=== PATIENT | female | born 1990 | race Caucasian/White ===

== ENCOUNTER 2018-02-06 00:55 | Emergency (ER) | payer BC, SELFPAY ==
[2018-02-06 00:56] VITALS: BP 159/109; PULSE 75; RESP 24; TEMP 36.9; O2SAT 97; BMI 33.3
[2018-02-06] MEDS: morphine 8 MG/ML Syringe IV (01:08)
[2018-02-06] MEDS: Ondansetron 4 MG/2 ML Vial IV (01:09)
[2018-02-06] MEDS: 0.9% Normal Saline 1,000 ML 250 ML IV (01:09)
[2018-02-06 01:18] LABS: Absolute Lymphocyte Count 2.06 X10^3/ul (0.83-4.51); Absolute Neutrophil Count 6.8 X10^3/uL (2.0-7.7); Basophil# 0.02 X10^3/uL; Basophil% 0.2 % (0-1); Eosinophil# 0.26 X10^3/uL; Eosinophils% 2.7 % (0-5); Hematocrit 41.7 % (37-47); Hemoglobin 14.5 g/dl (12.0-15.0); Lymphocyte # 2.06 X10^3/ul (4.0); Lymphocyte % 21.1 % (19-41); Mean Corp Hgb Conc 34.8 g/gl (32-36); Mean Corpuscular Hgb 31.5 pg (27.0-32.0); Mean Corpuscular Volume 90.5 fL (81-99); Monocyte# 0.57 X10^3/uL; Monocyte% 5.8 % (0-10); Neutrophil # 6.84 X10^3/uL (2.7-7.7); Platelet Count 193 K/mm3 (150-450); RBC Distribution Width CV 12.9 % (11.6-14.6); RBC Distribution Width SD 42.2 fl (35.1-43.9); Red Blood Count 4.61 M/mm3 (4.2-5.4); White Blood Count 9.8 K/mm3 (4.4-11.0)
[2018-02-06 01:19] LABS: POSITIVE COUNT NO; POSITIVE DIFFERENTIAL NO; POSITIVE MORPHOLOGY NO
--- NOTE | 2018-02-06 01:59 | ED.RN ---
DR SARAH GREEN FOR DR BOLTON
[2018-02-06] MEDS: Ketorolac 15 MG/ML Vial IV (02:08)
[2018-02-06] MEDS: HYDROmorphone 0.5 MG/0.5 ML SYRINGE IV ×2 (02:08→03:43)
--- NOTE | 2018-02-06 02:49 | ED.VISSUMM ---
- ER Visit Summary Date of Service: 02/06/18 Chief Complaint: Severe cramping pelvic pain with vaginal bleeding History of Present Illness: The patient is a 27 F who is AB 0 with a positive blood presents with cramping pelvic pain every 5 minutes. She began to bleed 2 hours prior to presentation and states she has saturated 3 pads. She did not notice any tissue and she denies any clots. She had an ultrasound which revealed gestational development at 7 weeks and by dates she should be 13 weeks. states she was given methotrexate to expelled the contents. She has a positive blood. She denies fever, chills night sweats. She denies cardiorespiratory symptoms. She denies nausea, vomiting or diarrhea. Physical Examination: Vital signs noted and remarkable for an elevated blood pressure 159/109. She appears in discomfort. She is slightly pale in appearance. Head is atraumatic normocephalic. Pupils are equal round reactive. Extraocular muscles are intact. TMs are pearly white with landmarks noted. Nares patent with no drainage. Posterior pharynx without erythema or exudate. Uvula is midline. There is no dysphonia or dysphasia. Trachea is midline. There is no stridor with auscultation of the neck. Heart is regular without murmur, gallop or rub. S1 and S2 are normal. Lungs are clear to auscultation with good movement of air bilaterally. Abdomen is soft minimal suprapubic discomfort. External genitalia normal. Vaginal mucosa normal. External loss appears dilated. There is blood being expelled from the uterus. Attempt to tell other contents was unsuccessful. Uterus is enlarged and approximately 6 weeks. She has uterine tenderness. No adnexal mass or tenderness appreciated. Test Results: CBC is unremarkable. Emergency Department Course and Treatment: IV was established she was treated with 8 mg of morphine and 4 mg of Zofran IV push. She was still having significant discomfort. She received 0.5 mg of Dilaudid IV push and 50 mg of Toradol IV push. Call was placed by admin secretary and attempt to contact Dr. Carrie Montelongo was unsuccessful. Will attempt again at 0300. Spoke with Dr. Carrie Montelongo's occasional caregiver. She recommended speaking with Dr. Estrada who is lead radiation therapist if patient continued to have pain. I was informed while I was talking with the occasional caregiver that patient expelled the products of conception. She was made aware of this. Her pain is resolved. Treatment Plan: Protocol for passage of products of conception. Disposition: Discharge to home Impression: Complete AB after administration of Cytotec This note was generated with [employer] dictation software. It may contain incorrect words, spelling, and punctuation that were not noted in review of the chart prior to signing ED Disposition - Plan for ED Patient: Disposition: Home or Assisted Living Chief Complaint: Vag Bld, Preg Instructions: ED Miscarriage Completed Referrals: Lonnie Rothman MD [Primary Care Provider] - Carrie Montelongo MD [STAFF PHYSICIAN] - Additional Instructions: Contact Dr. Carrie Montelongo's office on Thursday.
--- NOTE | 2018-02-06 02:52 | ED.DCSUM_ITS ---
- ER Visit Summary Date of Service: 02/06/18 Chief Complaint: Severe cramping pelvic pain with vaginal bleeding History of Present Illness: The patient is a 27 F who is AB 0 with a positive blood presents with cramping pelvic pain every 5 minutes. She began to bleed 2 hours prior to presentation and states she has saturated 3 pads. She did not notice any tissue and she denies any clots. She had an ultrasound which revealed gestational development at 7 weeks and by dates she should be 13 weeks. states she was given methotrexate to expelled the contents. She has a positive blood. She denies fever, chills night sweats. She denies cardiorespiratory symptoms. She denies nausea, vomiting or diarrhea. Physical Examination: Vital signs noted and remarkable for an elevated blood pressure 159/109. She appears in discomfort. She is slightly pale in appearance. Head is atraumatic normocephalic. Pupils are equal round reactive. Extraocular muscles are intact. TMs are pearly white with landmarks noted. Nares patent with no drainage. Posterior pharynx without erythema or exudate. Uvula is midline. There is no dysphonia or dysphasia. Trachea is midline. There is no stridor with auscultation of the neck. Heart is regular without murmur, gallop or rub. S1 and S2 are normal. Lungs are clear to auscultation with good movement of air bilaterally. Abdomen is soft minimal suprapubic discomfort. External genitalia normal. Vaginal mucosa normal. External loss appears dilated. There is blood being expelled from the uterus. Attempt to tell other contents was unsuccessful. Uterus is enlarged and approximately 6 weeks. She has uterine tenderness. No adnexal mass or tenderness appreciated. Test Results: CBC is unremarkable. Emergency Department Course and Treatment: IV was established she was treated with 8 mg of morphine and 4 mg of Zofran IV push. She was still having significant discomfort. She received 0.5 mg of Dilaudid IV push and 50 mg of Toradol IV push. Call was placed by clerical secretary and attempt to contact Dr. Carrie Montelongo was unsuccessful. Will attempt again at 0300. Spoke with Dr. Carrie Montelongo's customer service analyst. She recommended speaking with Dr. Estrada who is communication coordinator if patient continued to have pain. I was informed while I was talking with the customer service analyst that patient expelled the products of conception. She was made aware of this. Her pain is resolved. Treatment Plan: Protocol for passage of products of conception. Disposition: Discharge to home Impression: Complete AB after administration of Cytotec This note was generated with [employer] dictation software. It may contain incorrect words, spelling, and punctuation that were not noted in review of the chart prior to signing ED Disposition - Plan for ED Patient: Disposition: Home or Assisted Living Chief Complaint: Vag Bld, Preg Instructions: ED Miscarriage Completed Referrals: Lonnie Rothman MD [Primary Care Provider] - Carrie Montelongo MD [STAFF PHYSICIAN] - Additional Instructions: Contact Dr. Carrie Montelongo's office on Thursday.
--- NOTE | 2018-02-06 03:36 | ED.RN ---
DR RICARDO X3 AND DR RODRIGUEZ X1 PAGED
[2018-02-06 03:44] VITALS: BP 132/74; PULSE 91; RESP 22; O2SAT 98
--- NOTE | 2018-02-06 04:12 | ED.RN ---
LEFT MESSAGE ON VOICEMAIL FOR DR LOGAN WHO PER CATHERINE MIRANDA COVERS FOR DR SMITH
--- NOTE | 2018-02-06 04:12 | ED.RN ---
CONTACTED ANSWERING SERVICE FOR DR SMITH
--- NOTE | 2018-02-06 04:45 | ED.RN ---
PT CALLED STAFF INTO THE ROOM. PT IN THE BATHROOM. DROPS OF BLOOD ON THE FLOOR. THIS NURSE AND KARIS RN IN THE ROOM WITH THE PT. PT GIVEN BATH PACK TO CLEAN UP. WHEN THIS NURSE STARTED CLEANING THE BED, TISSUE AND BLOOD FOUND ON THE BED. PLACED IN A SPECIMEN CUP AND SHOWN TO DR BOLTON. DR BOLTON AND THIS NURSE IN THE ROOM TO INFORM THE PT AND HER SHE PASSED THE PRODUCTS OF CONCEPTION.
--- NOTE | 2018-02-06 06:15 | POC_PTH ---
PATIENT: KATHY SOLER LOC: ED U#:[id number] AGE/SX: 27/F ROOM: RE02/06/[address]: Dr. Chacorta Whiting MD : 1990 BED: DIS: 02/06/2018 SPEC #: [id number] RECD: 02/08/18 13:12 STATUS: LELA REPatt #: [id number] MARLEN: 02/06/18 06:[address]: Chacorta Whiting DEPT: SURGICAL PATHOLOGY RECD BY: Terrence Payton ENTERED: 02/08/18 13:12 SP TYPE: PROD CONC OTHR DR: Dr. Lonnie Rothman MD Tissues: Product of conception, NOS Procedures: Surgery Specimen Level IV HEADER OPERATION: Not noted PRE-OP DIAGNOSIS: Miscarriage TISSUE SUBMITTED: Products of conception MICROSCOPIC DIAGNOSIS Products of conception: Decidua and immature chorionic villi (products of conception). SJ:oscar 02/10/18 MICROSCOPIC DESCRIPTION Slides are reviewed. GROSS DESCRIPTION Received is one container labeled with the patient's name and not further designated. The specimen consists of a piece of hemorrhagic soft tissue measuring 6.5 x 2.5 x 2.5 cm. Sections reveal hemorrhagic cut surfaces. No obvious tissue is identified. Chemical Engineer sections are submitted in two cassettes. / SJ:oscar 02/08/18 TC:5 CPT: 62667
[2018-02-06 06:24] VITALS: BP 118/62; PULSE 74; RESP 16; O2SAT 98
--- NOTE | 2018-02-06 06:24 | ED.RN ---
THIS NURSE REVIEWED D/C INSTRUCTIONS WITH PT AND . PT VERBALIZED UNDERSTANDING OF INSTRUCTIONS. IV D/C. IV CATHETER INTACT. PT TOLERATED WELL. PT DENIES FURTHER NEEDS OR QUESTIONS AT THIS TIME. PT AMBULATES FROM ROOM ON OWN WITHOUT ASSISTANCE FROM STAFF
[2018-02-06 06:28] LABS: Pathology Specimen OB SEE PATHOLOGY REPORT
== END 2018-02-06 06:28 | disposition home or self-care (01) ==
PROVIDERS: Emergency Provider Emergency Medicine; Family Provider Family Medicine; PCP Family Medicine
DX: R03.0 Elevated blood-pressure reading, without diagnosis of hypertension (principal); O03.9 Complete or unspecified spontaneous abortion without complication; E66.9 Obesity, unspecified; O99.211 Obesity complicating pregnancy, first trimester; Z3A.01 Less than 8 weeks gestation of pregnancy
CPT/HCPCS: 85025; 88305; 96361; 96374; 96375; 96376; 99284; J7030; A4216; J2405

== ENCOUNTER → 2018-05-24 15:26 | Outpatient (CLI) | payer BC, SELFPAY ==
[2018-05-24 18:20] LABS: hCG Titer Quant., Serum 15751 mIU/mL (<9 non-preg)
[2018-05-24 20:08] LABS: Chlamydia Trachomatis by PCR Negative (Negative); Neisserai gonorrhoeae by PCR Negative (Negative); Probe Check PASS; Sample Adequacy Control PASS; Specimen Processing Control PASS
== END ==
PROVIDERS: Visit Provider Obstetrics & Gynecology
DX: O20.0 Threatened abortion (principal); Z11.3 Encounter for screening for infections with a predominantly sexual mode of transmission
CPT/HCPCS: 36415; 84702; 87491; 87591

== ENCOUNTER → 2018-05-26 15:05 | Outpatient (CLI) | payer BC, SELFPAY ==
[2018-05-26 16:58] LABS: hCG Titer Quant., Serum 19342 mIU/mL (<9 non-preg)
== END ==
PROVIDERS: Visit Provider Obstetrics & Gynecology
DX: O20.0 Threatened abortion (principal)
CPT/HCPCS: 36415; 84702

== ENCOUNTER 2018-06-04 11:53 | Day surgery (SDC) | payer BC, SELFPAY ==
--- NOTE | 2018-06-03 09:41 | HP.PCM_ITS ---
History and Physical Date of Admission: 06/04/18 Surgical History and Physical Tejal Galindo, a 27 year old female 0 0 1 0 0, presents for Blighted Ovum on June 04, 2018 at 1:30. -- Blighted Ovum -- Periodic spotting. Severity is moderate and very concerned; Additional comments are: u/s shows blighted ovum; quant HCGs did not rise appropriately last week. MEDICATIONS HISTORY: Patient is also takin. ProAir HFA 90 mcg/actuation aerosol inhaler, As Directed ALLERGIES: No Known Allergies Infections - Chicken pox Illnesses - asthma, Spondolysiis and Accidents - None Hospitalizations - see surgery Review of Systems: GENERAL - Denies fever, or chills SKIN - Denies skin changes EYES - Denies visual changes EARS - Denies difficulty hearing NOSE - Denies nasal congestion or bleeding MOUTH - Denies sore throat or difficulty swallowing NECK - Denies pain or swelling RESPIRATORY - Denies shortness of breath or wheezing CARDIOVASCULAR - Denies palpitations or chest pain GASTROINTESTINAL - nausea GENITOURINARY - Denies dysuria, frequency of urination, incontinence of urine MUSCULOSKELETAL - Denies joint or muscle pain NEUROLOGICAL - Denies localized numbness or weakness PSYCHIATRIC - Denies depression or anxiety ENDOCRINE - Denies heat or cold intolerance, weight loss or gain HEMATO-IMMUNOLOGIC - Denies excesive bleeding with cuts SOCIAL HISTORY: Alcohol Use - RARELY Smoking - Never Diet - no special diet Lifestyle - moderate stress lifestyle and Exercise - active work Seat Belt Use - always 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 2007 [place] Teeth Removal PHYSICAL EXAM BP- 122/80 Sitting, Right arm, regular cuff Weight- 206.05204 lbs Height- 65.5 inch BMI:33.83 CONSTITUTIONAL - NAD, well nourished, and well developed SKIN - No rash, lesions, or ulcers HEENT - Normocephalic, PERRLA, EOMI NECK - No nodes, no nuchal rigidity and thyroid normal size and texture LYMPH NODES - Palpation of lymph nodes in neck and groins within normal limits LUNGS - CTA x2 without wheezes, crackles or rales CARDIAC - Regular rate and rhythm without rubs, murmurs, or gallops ABDOMEN - Without hepatosplenomegaly, distention, masses, rebound, or guarding; normal bowel sounds; no hernias EXTREMITIES - No edema or calf tenderness NEUROLOGICAL - Cranial nerves II-XII grossly intact PSYCHIATRIC - A and O to time, place, person, mood and affect External Genitial Vagina - non-tender without lesions Urethra/Urethral Meatus - non-tender Bladder - non-tender Vagina - vaginal kahn are pink and moist without loss of rugae and no evidence of atropy Cervix - without cervical motion tenderness and has normal size and features without evident lesions Uterus - multiparous size 6 cm & wt 75-125 g Adnexa - clear without masses or tenderness ASSESSMENT/PLAN: 1. Spontaneous , Incomplete, Without Mention Of Complication Blighted Ovum. Discussed treatment options including expectant management vs proceeding with suction D and E. Plan D and E. Discussed RBAs and all questions answered.
[2018-06-04] VITALS (8 sets, daily range): BP systolic 116–126; BP diastolic 7–73; PULSE 68–108; RESP 14–108; TEMP 37.1–37.6; O2SAT 92–98; BMI 33.2
[2018-06-04 12:26] LABS: Hematocrit 43.7 % (37-47); Hemoglobin 14.9 g/dl (12.0-15.0); Mean Corp Hgb Conc 34.1 g/gl (32-36); Mean Corpuscular Volume 88.1 fL (81-99); Mean Platelet Vol. 9.4 fl (6.2-12.0); Platelet Count 192 K/mm3 (150-450); RBC Distribution Width CV 13.1 % (11.6-14.6); RBC Distribution Width SD 42.3 fl (35.1-43.9); Red Blood Count 4.96 M/mm3 (4.2-5.4); White Blood Count 5.5 K/mm3 (4.4-11.0)
[2018-06-04 12:30] LABS: International Normalized Ratio 1.1; Prothrombin Time (Protime)PT. 13.6 SECONDS (11.7-14.9)
[2018-06-04 12:31] LABS: Partial Thromboplast Time 28.1 Seconds (24.1-36.2)
[2018-06-04 12:33] LABS: Scan Indicated on CBC? Y/N NO
--- NOTE | 2018-06-04 13:30 | POC_PTH ---
PATIENT: KATHY SOLER LOC: [facility] [place] U[place][id number] AGE/SX: 27/F ROOM: RE06/04/[address]: Dr. Anastacio Lopez MD : 1990 BED: DIS: 06/04/2018 SPEC #: [id number] RECD: 06/04/18 16:37 STATUS: LELA REYNA #: [id number] MARLEN: 06/04/18 13:[address]: Anastacio Lopez DEPT: SURGICAL PATHOLOGY RECD BY: Jeronimo Velasco ENTERED: 06/07/18 10:21 SP TYPE: PROD CONC OTHR DR: Dr. Lonnie Rothman MD Tissues: Product of conception, NOS Procedures: Surgery Specimen Level IV HEADER OPERATION: Dilation and curettage, suction PRE-OP DIAGNOSIS: Spontaneous incomplete without mention of complication blighted ovum TISSUE SUBMITTED: Products of conception MICROSCOPIC DIAGNOSIS Products of conception: Decidua, gestational endometrium and immature chorionic villi (products of conception). SJ:oscar 06/08/18 MICROSCOPIC DESCRIPTION Slides are reviewed. GROSS DESCRIPTION Received in fixative is one container labeled with the patient's name and designated products of conception. The specimen consists of multiple irregular fragments of light to dark franco soft tissue that in aggregate measure 7 x 3 x 0.6 cm. parts are not grossly recognized. Hydrogen Power Plant Manager portions are submitted in one cassette. / AM:oscar 06/07/18 TC:5 CPT: 39235
--- NOTE | 2018-06-04 13:49 | PCM.OPRPT ---
Report of Operation Date of Procedure: 06/04/18 Pre-Operative Diagnosis: Inevitable Miscarriage Post-Operative Diagnosis: Inevitable Miscarriage Surgery/Procedure Performed:: Suction Dilation and Evacuation Description of Surgical Findings:: 8-9 cm endometrial cavity with products of conception Type of Anesthesia:: MAC Anesthesiologist: Gilson Laurent Specimen's removed: Products of conception Drains: None Estimated Blood Loss (mL): Minimal Fluids Replaced: Crystalloid Description of Procedure: Surgeon: Anastacio Lopez MD, FACOG Indication: 27 Year patient with incomplete AB at about 9 weeks gestation with a blighted ovum. Pt has been counseled re RBAs and all questions answered. Procedure: Pt taken to the OR where she was given IV sedation. The patient was prepped and draped in the usual sterile fashion. Anterior cervix grasped and cervix dilated to 9 mm. An 8 mm suction curette was inserted into the cervix and all contents removed. Uterus was gently curetted and remaining tissue removed. Pt tolerated the procedure well and was taken to the recovery room in satisfactory condition. Sponge, instruments and needle counts were all correct. There were no apparent complications of the surgery. Grafts/Implants Used: None - Complications None - Admit VTE Documentation VTE Present on Admission: Yes VTE Mechan Device Prophylaxis: SCD's
--- NOTE | 2018-06-04 13:53 | DCINST_ITS ---
Discharge Diet: No Restrictions Discharge Activity: Return to Normal Activity, May Shower, May Take a Tub Bath Call your doctor if you observe: Fever of 101 or Higher, Inability to urinate, Inability to have a bowel movement, Using more than one pad per hour Allergies/Adverse Reactions: Allergies amoxicillin [From Augmentin] Allergy (Verified 06/02/18 09:10) Unknown clavulanic acid [From Augmentin] Allergy (Verified 06/03/18 16:19) Unknown Pt had reaction when they were a child. Since they have taken Amoxicillin and have been fine, but have not taken Augmentin. Medications to take at Discharge Albuterol IH (ProAir) [Proair Hfa] 2 puff IH Q6H PRN PRN 02/06/18 Loratadine [Claritin] 10 mg PO DAILY 06/02/18 Primary Care Physician: Lonnie Rothman MD [Primary Care Provider] - Test Results: Test results from this visit will be discussed in further detail at your follow- up appointment, if applicable. Please Follow Up With: Anastacio Lopez MD When: 2-3 weeks
[2018-06-04] MEDS: Lubricating Jelly 60 GM Tube 30 GM TOPICAL (13:54)
== END 2018-06-04 15:30 | disposition home or self-care (01) ==
LOC: SDC 11:56 → ACINP 12:00
PROVIDERS: Family Provider Family Medicine; PCP Family Medicine; Referring Provider Obstetrics & Gynecology; Visit Provider Obstetrics & Gynecology
PROC: (CPT 59812; principal; 2018-06-04 13:15)
DX: O02.0 Blighted ovum and nonhydatidiform mole (principal); O03.4 Incomplete spontaneous abortion without complication; J45.909 Unspecified asthma, uncomplicated; Z3A.09 9 weeks gestation of pregnancy; Z79.899 Other long term (current) drug therapy
CPT/HCPCS: 59812; 85027; 85610; 85730; 86850; 86900; 88305; J7120

== ENCOUNTER → 2018-11-17 17:47 | Outpatient (CLI) | payer BC, SELFPAY ==
[2018-06-04 12:28] VITALS: BMI 33.2
[2018-11-17 20:35] LABS: Chlamydia Trachomatis by PCR Negative (Negative); Neisserai gonorrhoeae by PCR Negative (Negative); Probe Check PASS; Sample Adequacy Control PASS; Specimen Processing Control PASS
[2018-11-23 09:33] LABS: HPV Reflexed? NOT INDICATED
== END ==
PROVIDERS: Family Provider Family Medicine; PCP Family Medicine; Referring Provider Obstetrics & Gynecology; Visit Provider Obstetrics & Gynecology
DX: Z12.4 Encounter for screening for malignant neoplasm of cervix (principal); Z11.3 Encounter for screening for infections with a predominantly sexual mode of transmission
CPT/HCPCS: 87491; 87591; 88175; G0145

== ENCOUNTER → 2018-12-01 16:25 | Outpatient (CLI) | payer BC, SELFPAY ==
[2018-06-04 12:28] VITALS: BMI 33.2
[2018-12-01 17:50] LABS: Absolute Lymphocyte Count 1.59 X10^3/uL (0.83-4.51); Absolute Neutrophil Count 4.4 X10^3/uL (2.0-7.7); Basophil# 0.02 X10^3/uL; Basophil% 0.3 % (0-1); Eosinophil# 0.24 X10^3/uL; Eosinophils% 3.6 % (0-5); Hematocrit 44.6 % (37-47); Hemoglobin 14.8 g/dL (12.0-15.0); Lymphocyte # 1.59 X10^3/ul (4.0); Lymphocyte % 23.6 % (19-41); Mean Corp Hgb Conc 33.2 g/dL (32-36); Mean Corpuscular Hgb 30.1 pg (27.0-32.0); Mean Corpuscular Volume 90.7 fL (81-99); Mean Platelet Vol. 10.2 fl (6.2-12.0); Monocyte# 0.48 X10^3/uL; Monocyte% 7.1 % (0-10); NRBC Flagged by Analyzer 0 % (0-5); Neutrophil % 65.3 % (47-70); Platelet Count 211 K/mm3 (150-450); RBC Distribution Width CV 12.7 % (11.6-14.6); RBC Distribution Width SD 41.9 fl (35.1-43.9); Red Blood Count 4.92 M/mm3 (4.2-5.4); White Blood Count 6.7 K/mm3 (4.4-11.0)
[2018-12-01 17:51] LABS: Color, Urine Yellow (Yellow); Glucose, Dipstick Normal (Normal); Ketone-Dipstick Negative (Negative); Leukocyte Esterase-Dipstick Negative /ul (Negative); Nitrite-Dipstick Negative (Negative); Occult Blood-Urine Negative /ul (Negative); Protein-Dipstick Negative (Negative); Specific Gravity, Urine 1.025 (1.002-1.030); Urine Bilirubin Dipstick Negative (Negative); Urine Clarity Clear (Clear); Urine Urobilinogen Normal (Normal)
[2018-12-01 18:15] LABS: Amphetamine Urine VISTA NEGATIVE (<1000 ng/mL); Barbiturate Urine VISTA NEGATIVE (< 200 ng/mL); Benzodiazepine Urine VISTA NEGATIVE (< 200 ng/mL); Cocaine Urine VISTA NEGATIVE (< 300 ng/mL); Ecstacy Urine VISTA NEGATIVE (< 500 ng/mL); Methadone Urine VISTA NEGATIVE (< 300 ng/mL); PCP Urine VISTA NEGATIVE (< 25 ng/mL); THC Urine VISTA NEGATIVE (< 50 ng/mL); Vista UDS pH Range 5
[2018-12-01 18:17] LABS: Thyroid Stim Hormone (TSH) 1.41 uIU/mL (0.358-3.74)
[2018-12-02 02:58] LABS: Prenatal RPR NONREACTIVE (NONREACTIVE)
[2018-12-02 11:27] LABS: HIV - WCH Non-Reactive (Nonreactive); Hepatitis B Surface Antigen Non-Reactive (Nonreactive); Hepatitis C Antibody Non-Reactive (Nonreactive); Rubella IgG 195.2 IU/mL
== END ==
PROVIDERS: Visit Provider Obstetrics & Gynecology
DX: Z34.81 Encounter for supervision of other normal pregnancy, first trimester (principal)
CPT/HCPCS: 36415; 80307; 81002; 84443; 85025; 86703; 86762; 86803; 87340

== ENCOUNTER 2019-01-05 05:56 | Day surgery (SDC) | payer BC, SELFPAY ==
[2018-06-04 12:28] VITALS: BMI 33.2
--- NOTE | 2019-01-04 14:04 | HP.PCM_ITS ---
History and Physical Date of Admission: 01/05/19 Surgical History and Physical Tejal Galindo, a 28 year old female 0 0 2 0 0, presents for Inevitable Miscarriage on January 05, 2019 at 7:30. -- Inevitable Miscarriage -- Irregular GS seen on u/s. No FHR or color doppler seen. Fetus measures 8 weeks 2 days without FHTs at 12 weeks 0 days gestation. MEDICATIONS HISTORY: Patient is also takin. ProAir HFA 90 mcg/actuation aerosol inhaler, As Directed ALLERGIES: No Known Allergies Infections - Chicken pox Illnesses - asthma, Spondolysiis and Accidents - None Hospitalizations - see surgery Review of Systems: GENERAL - Denies fever, or chills SKIN - Denies skin changes EYES - Denies visual changes EARS - Denies difficulty hearing NOSE - Denies nasal congestion or bleeding MOUTH - Denies sore throat or difficulty swallowing NECK - Denies pain or swelling RESPIRATORY - reactive airway CARDIOVASCULAR - Denies palpitations or chest pain GASTROINTESTINAL - Denies nausea, vomiting, diarrhea, constipation GENITOURINARY - Denies dysuria, frequency of urination, incontinence of urine MUSCULOSKELETAL - spondelothesis NEUROLOGICAL - Denies localized numbness or weakness PSYCHIATRIC - Denies depression or anxiety ENDOCRINE - Denies heat or cold intolerance, weight loss or gain HEMATO-IMMUNOLOGIC - Denies excesive bleeding with cuts SOCIAL HISTORY: Alcohol Use - denies drinking Smoking - Never Diet - no special diet Lifestyle - moderate stress lifestyle and Exercise - active work Seat Belt Use - always 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[employer] 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 Illicit Drug Use - None Sexual Activity - Residence - lives with Place of - [place], [place] Hours Worked - 30 wk Spouse-Sig Other Name - Hemant Galindo Spouse-Sig Other Occupation - [employer] -- [employer] Spouse-Sig Other Phone No - [phone] Control - FAMILY HISTORY: MENSTRUAL HISTORY: LMP Known?- DefiniteAmount/Duration - 3 days, Regularity - Regular, Frequency - monthly days, LMP - 10/02/18, Age Onset Menarche - 12 PAST PREGNANCIES: Total Pregnancies - 3; Full Term Pregnancies - 0; Premature - 0; Abortions, Induced - 0; Abortions, Spontaneous - 2; Ectopics - 0; Multiple Births - 0; Living Children - 0 SURGICAL HISTORY: 1. 06/04/2018 suction D and C ; Anastacio Lopez M.D. 2. 2007 [place] Teeth Removal PHYSICAL EXAM BP- 120/78 Sitting, Right arm, regular cuff Weight- 210.99059 lbs Height- 65.5 inch BMI:34.49 CONSTITUTIONAL - NAD, well nourished, and well developed SKIN - No rash, lesions, or ulcers HEENT - Normocephalic, PERRLA, EOMI NECK - No nodes, no nuchal rigidity and thyroid normal size and texture LYMPH NODES - Palpation of lymph nodes in neck and groins within normal limits LUNGS - CTA x2 without wheezes, crackles or rales CARDIAC - Regular rate and rhythm without rubs, murmurs, or gallops ABDOMEN - Without hepatosplenomegaly, distention, masses, rebound, or guarding; normal bowel sounds; no hernias EXTREMITIES - No edema or calf tenderness NEUROLOGICAL - Cranial nerves II-XII grossly intact PSYCHIATRIC - A and O to time, place, person, mood and affect External Genitial Vagina - non-tender without lesions Urethra/Urethral Meatus - non-tender Bladder - non-tender Vagina - vaginal kahn are pink and moist without loss of rugae and no evidence of atropy Cervix - without cervical motion tenderness and has normal size and features without evident lesions Uterus - multiparous size 6 cm & wt 75-125 g Adnexa - clear without massess or tenderness ASSESSMENT/PLAN: Inevitable Miscarriage. Plan Suction D and E. Discussed RBAs and all questions answered.
[2019-01-05 06:32] LABS: Hematocrit 42.2 % (37-47); Hemoglobin 14.3 g/dL (12.0-15.0); Mean Corp Hgb Conc 33.9 g/dL (32-36); Mean Corpuscular Hgb 30.2 pg (27.0-32.0); Mean Corpuscular Volume 89.2 fL (81-99); Mean Platelet Vol. 9.3 fl (6.2-12.0); Platelet Count 178 K/mm3 (150-450); RBC Distribution Width CV 12.6 % (11.6-14.6); RBC Distribution Width SD 41.6 fl (35.1-43.9); Red Blood Count 4.73 M/mm3 (4.2-5.4); White Blood Count 5.5 K/mm3 (4.4-11.0)
[2019-01-05 06:38] VITALS: BP 115/66; PULSE 66; RESP 15; TEMP 36.7; O2SAT 98; BMI 34.9
[2019-01-05 06:40] LABS: Prothrombin Time (Protime)PT. 13.2 SECONDS (11.7-14.9)
[2019-01-05 06:41] LABS: Partial Thromboplast Time 26.9 Seconds (24.1-36.2)
[2019-01-05] MEDS: Lactated Ringers 1,000 ML 100 ML IV (06:51)
--- NOTE | 2019-01-05 07:30 | POC_PTH ---
PATIENT: KATHY SOLER LOC: [facility] [place] U#:[id number] AGE/SX: 28/F ROOM: RE01/05/[address]: Dr. Anastacio Lopez MD : 1990 BED: DIS: 01/05/2019 SPEC #: [id number] RECD: 01/05/19 08:33 STATUS: LELA DASHPatt #: [id number] MARLEN: 01/05/19 07:[address]: Anastacio Lopez DEPT: SURGICAL PATHOLOGY RECD BY: Jeronimo Velasco ENTERED: 01/05/19 12:03 SP TYPE: PROD CONC OTHR DR: Dr. Lonnie Rothman MD Tissues: Product of conception, NOS Procedures: Surgery Specimen Level IV HEADER OPERATION: Dilation and curettage, suction PRE-OP DIAGNOSIS: Inevitable miscarriage TISSUE SUBMITTED: Products of conception MICROSCOPIC DIAGNOSIS Endometrium, curettage: Chorionic villi, decidualized stroma and trophoblastic cells consistent with products of conception. See comment. AM:oscar 01/06/19 COMMENT Minimal hydropic change is noted in some of the villi. Clinical correlation is suggested. MICROSCOPIC DESCRIPTION Slides are reviewed. GROSS DESCRIPTION Received in fixative is one container labeled with the patient's name and designated products of conception. The specimen consists of multiple irregular fragments of pink-franco soft tissue that in aggregate measure 8.5 x 8 x 1.2 cm. parts are not grossly recognized. Access Coordinator portions are submitted in one cassette. / AM:oscar 01/05/19 TC:5 CPT: [id number]
--- NOTE | 2019-01-05 07:31 | PCM.OPRPT ---
Report of Operation Date of Procedure: 01/05/19 Pre-Operative Diagnosis: Inevitable Miscarriage Post-Operative Diagnosis: Inevitable Miscarriage Surgery/Procedure Performed:: Suction Dilation and Evacuation Description of Surgical Findings:: 12 cm endometrial cavity with products of conception Type of Anesthesia:: MAC Anesthesiologist: Corin Arreguin Estimated Blood Loss (mL): Minimal Fluids Replaced: Crystalloid Description of Procedure: Surgeon: Anastacio Lopez MD, FACOG Indication: 28 year patient with incomplete AB at 12 weeks gestation with a 7-8 week without heart movement. Pt has been counseled regarding the risks, benefits, and alternatives of this procedure and all questions were answered. Procedure: Patient was taken to the operating room where she was given IV sedation. The patient was prepped and draped in the usual sterile fashion. The anterior cervix was grasped with a tenaculum and cervix was dilated. An 9 mm suction curette was inserted into the cervix and all contents removed. Uterus was gently curetted and remaining tissue was removed by reinserting the suction curette. The patient tolerated the procedure well and was taken to the recovery room in satisfactory condition. Sponge, instruments and needle counts were all correct. There were no apparent complications of the surgery. Grafts/Implants Used: None - Complications None - Admit VTE Documentation VTE Present on Admission: Yes VTE Mechan Device Prophylaxis: SCD's
--- NOTE | 2019-01-05 07:35 | DCINST_ITS ---
Discharge Diet: No Restrictions Discharge Activity: Return to Normal Activity, May Shower, May Take a Tub Bath May resume sexual activity in: 2 weeks Call your doctor if you observe: Fever of 101 or Higher, Inability to urinate, Inability to have a bowel movement, Using more than one pad per hour Allergies/Adverse Reactions: Allergies amoxicillin [From Augmentin] Allergy (Verified 01/05/19 06:36) Unknown clavulanic acid [From Augmentin] Allergy (Verified 01/05/19 06:36) Unknown Pt had reaction when they were a child. Since they have taken Amoxicillin and have been fine, but have not taken Augmentin. Medications to take at Discharge Albuterol IH (ProAir) [Proair Hfa] 2 puff IH Q6H PRN PRN 02/06/18 Cetirizine HCl [Zyrtec] 10 mg PO DAILY 01/03/19 L.acidoph,Paracasei, B.lactis [Probiotic] 2 ea PO DAILY 01/03/19 No122/Iron/Folic Acid [ Multi Tablet] 1 ea PO DAILY 01/03/19 Primary Care Physician: Lonnie Rothman MD [Primary Care Provider] - Test Results: Test results from this visit will be discussed in further detail at your follow- up appointment, if applicable. Please Follow Up With: Anastacio Lopez MD When: 2-3 weeks
[2019-01-05] MEDS: Lubricating Jelly 60 GM Tube 30 GM TOPICAL (07:45)
[2019-01-05 08:06] VITALS: BP 115/66; BP 135/80; PULSE 98; RESP 16; TEMP 37.2; O2SAT 92
[2019-01-05 08:10] VITALS: BP 115/66; BP 124/74; PULSE 90; RESP 16; O2SAT 92
[2019-01-05 08:15] VITALS: BP 115/66; BP 117/80; PULSE 89; RESP 16; O2SAT 93
[2019-01-05 08:21] VITALS: BP 115/66; BP 117/77; PULSE 66; RESP 16; TEMP 37.1; O2SAT 95
[2019-01-05 09:04] VITALS: BP 115/66
== END 2019-01-05 09:14 | disposition home or self-care (01) ==
LOC: SDC 05:59 → AC 06:00
PROVIDERS: Family Provider Family Medicine; PCP Family Medicine; Referring Provider Obstetrics & Gynecology; Visit Provider Obstetrics & Gynecology
PROC: (CPT 59812; principal; 2019-01-05 07:15)
DX: O03.4 Incomplete spontaneous abortion without complication (principal); J45.909 Unspecified asthma, uncomplicated; Z79.899 Other long term (current) drug therapy
CPT/HCPCS: 59812; 36415; 85027; 85610; 85730; 86850; 86900; 86901; 88305; J7120; J2405

== ENCOUNTER → 2019-01-20 10:36 | Outpatient (CLI) | payer BC, SELFPAY ==
[2019-01-05 06:38] VITALS: BMI 34.9
[2019-01-22 03:07] LABS: Dilute Prothrombin Time (dPT) 42.1 sec (0.0-55.0); Dilute Russell Viper Venom 42.2 sec (0.0-47.0); PTT-LA 33.8 sec (0.0-51.9); Thrombin Time 16.5 sec (0.0-23.0); dPT Confirm Ratio 1.09 Ratio (0.00-1.40)
[2019-01-24 20:16] LABS: Anti-Cardiolipin Ab, IgG, Qn < 9 GPL U/mL (0-14); Anti-Cardiolipin Ab, IgM, Qn < 9 MPL U/mL (0-12); Interpretation Comment: (.)
== END ==
PROVIDERS: Family Provider Family Medicine; PCP Family Medicine; Visit Provider Obstetrics & Gynecology
DX: N96 Recurrent pregnancy loss (principal)
CPT/HCPCS: 36415; 86147

== ENCOUNTER → 2019-04-21 15:06 | Outpatient (CLI) | payer BC, SELFPAY ==
[2019-04-21 16:35] LABS: Vitamin D,25 Hydroxy 19.4 ng/mL
[2019-04-21 16:37] LABS: Free T3 3.1 pg/mL (2.18-3.98); T4 Free Direct 0.87 ng/dL (0.76-1.46); Thyroid Stim Hormone (TSH) 1.12 uIU/mL (0.358-3.74)
[2019-04-24 06:37] LABS: DHEA Sulfate 54.6 ug/dL (84.8-378.0)
[2019-04-25 11:55] LABS: Testosterone Free 3.7 pg/mL (0.0-4.2)
== END ==
PROVIDERS: PCP Family Medicine; Visit Provider Obstetrics & Gynecology
DX: N96 Recurrent pregnancy loss (principal)
CPT/HCPCS: 36415; 82306; 82627; 84402; 84439; 84443; 84481; 82626

== ENCOUNTER → 2019-06-21 14:13 | Outpatient (CLI) | payer BC, SELFPAY ==
[2019-06-21 15:39] LABS: hCG Titer Quant., Serum < 1 mIU/mL (1-3)
== END ==
PROVIDERS: PCP Family Medicine; Visit Provider Obstetrics & Gynecology
DX: N91.2 Amenorrhea, unspecified (principal)
CPT/HCPCS: 36415; 84702

== ENCOUNTER → 2019-09-14 09:32 | Outpatient (CLI) | payer BC, SELFPAY ==
[2019-09-14 12:05] LABS: hCG Titer Quant., Serum 25 mIU/mL (1-3)
== END ==
PROVIDERS: PCP Family Medicine; Visit Provider Obstetrics & Gynecology
DX: N96 Recurrent pregnancy loss (principal)
CPT/HCPCS: 36415; 84702

== ENCOUNTER → 2019-09-16 09:40 | Outpatient (CLI) | payer BC, SELFPAY ==
[2019-09-16 11:34] LABS: hCG Titer Quant., Serum 75 mIU/mL (1-3)
== END ==
PROVIDERS: PCP Family Medicine; Visit Provider Obstetrics & Gynecology
DX: N96 Recurrent pregnancy loss (principal)
CPT/HCPCS: 36415; 84702

== ENCOUNTER → 2019-11-09 15:51 | Outpatient (CLI) | payer BC, SELFPAY ==
[2019-11-09 17:55] LABS: Absolute Lymphocyte Count 1.63 X10^3/uL (0.83-4.51); Absolute Neutrophil Count 6.1 X10^3/uL (2.0-7.7); Basophil# 0.02 X10^3/uL; Basophil% 0.2 % (0-1); Eosinophil# 0.17 X10^3/uL; Hemoglobin 13.4 g/dL (12.0-15.0); Lymphocyte # 1.63 X10^3/ul (4.0); Lymphocyte % 19.4 % (19-41); Mean Corp Hgb Conc 34.4 g/dL (32-36); Mean Corpuscular Hgb 30.7 pg (27.0-32.0); Mean Corpuscular Volume 89.2 fL (81-99); Mean Platelet Vol. 9.7 fl (6.2-12.0); Monocyte# 0.46 X10^3/uL; Monocyte% 5.5 % (0-10); NRBC Flagged by Analyzer 0 % (0-5); Neutrophil # 6.12 X10^3/uL (2.7-7.7); Neutrophil % 72.7 % (47-70); Platelet Count 229 K/mm3 (150-450); RBC Distribution Width CV 12.7 % (11.6-14.6); Red Blood Count 4.37 M/mm3 (4.2-5.4); White Blood Count 8.4 K/mm3 (4.4-11.0)
[2019-11-09 17:57] LABS: Color, Urine Yellow (Yellow); Glucose, Dipstick Normal (Normal); Ketone-Dipstick 50 mg/dl (Negative); Leukocyte Esterase-Dipstick Negative /ul (Negative); Nitrite-Dipstick Negative (Negative); Occult Blood-Urine Negative /ul (Negative); Protein-Dipstick Negative (Negative); Urine Bilirubin Dipstick Negative (Negative); Urine Clarity Clear (Clear); Urine Urobilinogen Normal (Normal)
[2019-11-09 18:16] LABS: Thyroid Stim Hormone (TSH) 0.65 uIU/mL (0.358-3.74)
[2019-11-09 18:24] LABS: Amphetamine Urine VISTA NEGATIVE (<1000 ng/mL); Barbiturate Urine VISTA NEGATIVE (< 200 ng/mL); Benzodiazepine Urine VISTA NEGATIVE (< 200 ng/mL); Cocaine Urine VISTA NEGATIVE (< 300 ng/mL); Ecstacy Urine VISTA NEGATIVE (< 500 ng/mL); Methadone Urine VISTA NEGATIVE (< 300 ng/mL); PCP Urine VISTA NEGATIVE (< 25 ng/mL); THC Urine VISTA NEGATIVE (< 50 ng/mL); Vista UDS pH Range 6
[2019-11-10 05:23] LABS: Prenatal RPR NONREACTIVE (NONREACTIVE)
[2019-11-10 09:36] LABS: HIV - WCH Non-Reactive (Nonreactive); Hepatitis B Surface Antigen Non-Reactive (Nonreactive); Hepatitis C Antibody Non-Reactive (Nonreactive); Rubella IgG 161.2 IU/mL
== END ==
PROVIDERS: PCP Family Medicine; Visit Provider Obstetrics & Gynecology
DX: Z34.81 Encounter for supervision of other normal pregnancy, first trimester (principal)
CPT/HCPCS: 36415; 80307; 81002; 84443; 85025; 86703; 86762; 86803; 87340

== ENCOUNTER → 2020-02-29 15:26 | Outpatient (CLI) | payer BC, SELFPAY ==
[2020-02-29 17:24] LABS: Hematocrit 33.6 % (37-47); Hemoglobin 11.2 g/dL (12.0-15.0); Mean Corp Hgb Conc 33.3 g/dL (32-36); Mean Corpuscular Hgb 30.6 pg (27.0-32.0); Mean Corpuscular Volume 91.8 fL (81-99); Mean Platelet Vol. 9.1 fl (6.2-12.0); Platelet Count 207 K/mm3 (150-450); RBC Distribution Width CV 13.8 % (11.6-14.6); RBC Distribution Width SD 46.9 fl (35.1-43.9); Red Blood Count 3.66 M/mm3 (4.2-5.4); White Blood Count 9.1 K/mm3 (4.4-11.0)
[2020-02-29 17:34] LABS: Glucose Challenge Gest 1H 50g 148 mg/dL (70-140)
== END ==
PROVIDERS: PCP Family Medicine; Visit Provider Obstetrics & Gynecology
DX: Z34.83 Encounter for supervision of other normal pregnancy, third trimester (principal)
CPT/HCPCS: 36415; 82950; 85027

== ENCOUNTER → 2020-03-06 07:07 | Outpatient (CLI) | payer BC, SELFPAY ==
[2020-03-06 08:13] LABS: Glucose GTT-Gestation. Fasting 84 mg/dL (<105)
[2020-03-06 09:02] LABS: Glucose GTT-Gestational 1 Hr 182 mg/dL (<190)
[2020-03-06 10:16] LABS: Glucose GTT-Gestational 2 Hr 172 mg/dL (<165)
[2020-03-06 11:42] LABS: Glucose GTT-Gestational 3 Hr 76 L (<145)
== END ==
PROVIDERS: PCP Family Medicine; Referring Provider Obstetrics & Gynecology; Visit Provider Obstetrics & Gynecology
DX: O24.912 Unspecified diabetes mellitus in pregnancy, second trimester (principal); Z3A.00 Weeks of gestation of pregnancy not specified
CPT/HCPCS: 36415; 82951; 82952

== ENCOUNTER 2020-04-07 09:50 | Outpatient (CLI) | payer BC, SELFPAY ==
[2020-04-07 10:11] VITALS: BMI 36.6
--- NOTE | 2020-04-11 22:20 | OB.TRI.NOTE ---
History of Present Illness Date of Service: 04/07/20 Was patient seen by the physician?: No Reason For Visit: DECREASED MOVEMENT Date of Service: 04/07/20 Final CRYSTAL: 05/22/20 Gestational age: 33 Weeks and 4 Days History of Present Illness: 33+ week intrauterine with decreased movement. Allergies amoxicillin [From Augmentin] Allergy (Verified 04/07/20 10:05) Unknown clavulanic acid [From Augmentin] Allergy (Verified 04/07/20 10:05) Unknown Pt had reaction when they were a child. Since they have taken Amoxicillin and have been fine, but have not taken Augmentin. NST - FHR Rate Baby A NST Reactive:: Yes FHR Category:: Category I Impression/Plan 33+ week intrauterine with decreased movement. Reactive nonstress test noted. Will discharge to home with routine instructions and movement instructions.
== END 2020-04-07 10:40 | disposition home or self-care (01) ==
LOC: WPOUT 09:59 → OBT 09:59
PROVIDERS: PCP Family Medicine; Referring Provider Obstetrics & Gynecology; Visit Provider Obstetrics & Gynecology
DX: O36.8130 Decreased fetal movements, third trimester, not applicable or unspecified (principal); Z3A.33 33 weeks gestation of pregnancy
CPT/HCPCS: 59025; 59050; 99218; G0378

== ENCOUNTER → 2020-04-26 15:53 | Outpatient (CLI) | payer BC, SELFPAY ==
[2020-04-07 10:11] VITALS: BMI 36.6
== END ==
PROVIDERS: PCP Family Medicine; Visit Provider Obstetrics & Gynecology
DX: Z36.85 Encounter for antenatal screening for Streptococcus B (principal)
CPT/HCPCS: 87081

== ENCOUNTER 2020-05-25 02:55 | Inpatient (IN) | payer BC, SELFPAY ==
[2020-04-07 09:59] VITALS: BP 132/79; PULSE 94; TEMP 37.2; O2SAT 97
[2020-05-25] VITALS (74 sets, daily range): BP systolic 99–173; BP diastolic 49–91; PULSE 8–126; TEMP 36.1–37.3; O2SAT 82–100; BMI 37.6
[2020-05-25 02:50] LABS: ROM Internal Control Test YES-OK TO RESULT pt. (Internal QC)
[2020-05-25 02:52] LABS: ROM Patient Test POSITIVE (Negative)
[2020-05-25] MEDS: Lactated Ringers 500 ML 999 ML IV (03:10)
[2020-05-25] MEDS: Lactated Ringers 1,000 ML 50 ML IV (03:44)
[2020-05-25 03:52] LABS: Absolute Lymphocyte Count 1.36 X10^3/uL (0.83-4.51); Absolute Neutrophil Count 11.2 X10^3/uL (2.0-7.7); Basophil# 0.02 X10^3/uL; Basophil% 0.2 % (0-1); Eosinophil# 0.06 X10^3/uL; Eosinophils% 0.5 % (0-5); Hematocrit 39.5 % (37-47); Hemoglobin 13.4 g/dL (12.0-15.0); Lymphocyte # 1.36 X10^3/ul (4.0); Lymphocyte % 10.2 % (19-41); Mean Corp Hgb Conc 33.9 g/dL (32-36); Mean Corpuscular Hgb 31.5 pg (27.0-32.0); Mean Corpuscular Volume 92.7 fL (81-99); Mean Platelet Vol. 9.8 fl (6.2-12.0); Monocyte# 0.49 X10^3/uL; Monocyte% 3.7 % (0-10); NRBC Flagged by Analyzer 0 % (0-5); Neutrophil # 11.19 X10^3/uL (2.7-7.7); Neutrophil % 84.3 % (47-70); Platelet Count 181 K/mm3 (150-450); RBC Distribution Width CV 13.7 % (11.6-14.6); RBC Distribution Width SD 46.1 fl (35.1-43.9); Red Blood Count 4.26 M/mm3 (4.2-5.4); White Blood Count 13.3 K/mm3 (4.4-11.0)
[2020-05-25] MEDS: fentaNYL-bupivacaine (epidural) 100 ML BAG EPIDURAL ×4 (04:34→19:41)
[2020-05-25] MEDS: 0.9% Saline Lock 10 ML Syringe IV (05:40)
[2020-05-25] MEDS: Ondansetron 4 MG/2 ML Vial IV ×2 (05:40→15:57)
[2020-05-25 06:54] LABS: Chlamydia Trachomatis by PCR Negative (Negative); Neisserai gonorrhoeae by PCR Negative (Negative); Probe Check PASS; Sample Adequacy Control PASS; Specimen Processing Control PASS
[2020-05-25] MEDS: Oxytocin 30 units/NS 500 ml 30 UNITS/500 ML IV.SOLN IV (07:26)
--- NOTE | 2020-05-25 07:30 | HP.PCM_ITS ---
History and Physical Chief complaint: Leakage of fluid History of present illness: 29-year-old G4, P0 at 40 weeks and 3 days with CRYSTAL: 05/22/2020 by LMP arrives with leakage of clear fluid. Denies headache, visual changes, chest pain, shortness of breath, nausea, vomiting, right upper quadrant pain. Patient states good movement. Obstetric history: G1-G3: SAB G4: Current Past medical history: Asthma Medications: vitamin, proair, aspirin Past surgical history: D&C x2, wisdom teeth extraction Allergies: No known drug allergies Social history: Denies smoking, alcohol use, drug use Family history: Denies a history of DVT or PE Review of systems: Besides above pertinent positives a full review of systems was performed found to be negative Physical exam: Vital Signs Temp Pulse BP Pulse Ox 05/25/20 07:29 98.7 F 105 H 114/55 L 99 05/25/20 06:25 97.0 F L 105 H 110/54 L 95 05/25/20 05:20 96 122/60 H 05/25/20 05:18 106 H 96 05/25/20 05:15 106 H 107/53 L 05/25/20 05:14 114 H 94 05/25/20 05:11 103 H 119/61 05/25/20 05:08 106 H 94 05/25/20 05:07 112 H 94 05/25/20 05:05 101 H 123/62 H 05/25/20 05:03 112 H 96 05/25/20 05:01 97.6 F L 108 H 121/62 H 05/25/20 04:58 107 H 96 05/25/20 04:56 108 H 93 05/25/20 04:55 103 H 106/57 L 05/25/20 04:53 107 H 96 05/25/20 04:50 113 H 103/52 L 94 05/25/20 04:48 112 H 95 05/25/20 04:46 105 H 106/54 L 05/25/20 04:45 103 H 94 05/25/20 04:43 109 H 95 05/25/20 04:40 107 H 110/54 L 05/25/20 04:38 101 H 102/49 L 96 05/25/20 04:36 122 H 109/55 L 05/25/20 04:33 126 H 96 05/25/20 04:31 116 H 125/91 H 05/25/20 04:28 108 H 97 05/25/20 04:25 93 157/81 H 05/25/20 04:23 104 H 97 05/25/20 04:20 96 158/85 H 05/25/20 04:18 102 H 96 05/25/20 04:15 93 144/73 H 05/25/20 04:10 99 142/77 H 05/25/20 04:07 98.6 F 104 H 149/87 H 97 05/25/20 03:07 8 L 82 05/25/20 02:23 97.4 F L 93 133/81 H 97 General: Normal-appearing no acute distress HEENT: Normocephalic atraumatic no cervical lymphadenopathy Cardiac/respiratory: Nonlabored breathing, no use of accessory muscles Abdomen: Soft, nontender, gravid Extremities: No peripheral edema normal peripheral pulses Psych: Normal affect normal demeanor nonpressured speech Mom's Microbiology 05/25/20 03:45 Mucosa - Nose SARS-CoV-2 Antigen (Rapid) - Final Mom's Labs & Results 05/25/20 05/25/20 05/25/20 02:35 03:10 03:10 WBC 13.3 H RBC 4.26 Hgb 13.4 Hct 39.5 MCV 92.7 MCH 31.5 MCHC 33.9 RDW Std Deviation 46.1 H RDW Coeff of Magdaleno 13.7 Plt Count 181 MPV 9.8 Immature Gran % (Auto) 1.100 H Neut % (Auto) 84.3 H Lymph % (Auto) 10.2 L [place] % (Auto) 3.7 Eos % (Auto) 0.5 Baso % (Auto) 0.2 Absolute Neuts (auto) 11.2 H Absolute Lymphs (auto) 1.36 Nucleated RBC % 0 Vag Amniotic Fld Detect POSITIVE H Chlam trachomat DNA PCR N.gonorrhoeae DNA (PCR) Blood Type A POSITIVE Antibody Screen NEGATIVE 05/25/20 03:41 WBC RBC Hgb Hct MCV MCH MCHC RDW Std Deviation RDW Coeff of Magdaleno Plt Count MPV Immature Gran % (Auto) Neut % (Auto) Lymph % (Auto) [place] % (Auto) Eos % (Auto) Baso % (Auto) Absolute Neuts (auto) Absolute Lymphs (auto) Nucleated RBC % Vag Amniotic Fld Detect Chlam trachomat DNA PCR Negative N.gonorrhoeae DNA (PCR) Negative Blood Type Antibody Screen Labs Blood Type: A RH: POSITIVE RPR/VDRL/Syphilis Nonreactive Rubella status Immune HbSAg Negative Date Done: 11/09/19 HIV/AIDS Non-Reactive Group B Strep: Negative Assessment plan: 29 old G4, P0 at 40 weeks and 3 days with spontaneous rupture of membranes -Admit labor and delivery -CEFM -GBS negative -To augment with Pitocin -Routine orders -Anesthesia to see
[2020-05-25] MEDS: Lactated Ringers 1,000 ML 200 ML IV ×3 (08:36→18:57)
[2020-05-25] MEDS: Mag Hydrox/Al Hydrox/Simeth 30 ML UDC PO (11:42)
[2020-05-25] MEDS: Oxytocin 30 units/NS 500 ml 30 UNITS/500 ML IV.SOLN 334 UNITS IV (22:44)
--- NOTE | 2020-05-25 22:54 | PCM.OPRPT ---
Vaginal Delivery Maternal Presentation: Active Labor, Spontaneous Rupture of Membranes Method of Induction: Pitocin Amniotic Membrane Rupture Type: Spontaneous Amniotic Fluid Description: Clear Final CRYSTAL: 05/22/20 Final CRYSTAL Source: US <20 weeks Gestational age: 40 Weeks and 3 Days Date of Procedure: 05/25/20 Pre-Operative Diagnosis: IUP Post-Operative Diagnosis: IUP Surgery/ Procedure Performed: Spontaneous Vaginal Delivery Type of Anesthesia: Epidural, Local with 1% lidocaine Description of Procedure: Spontaneous vaginal delivery of a viable male infant with Apgars of 7/9 from an occiput anterior presentation with clear amniotic fluid and normal three-vessel placenta. No episiotomy. First-degree midline laceration repaired with 3-0 Rapide suture under epidural and local. Sponges okay. Delivery physician: Anastacio Lopez MD. Presentation: Vertex Placental Delivery Description: Spontaneous Placenta Disposition: [facility] Cord Vessel Description: 3 Vessels Cord Entanglement: None Estimated Blood Loss: 250 cc Infant A gender: Male (1 minute): 7 (5 minute): 9 Episiotomy Description: None Laceration: Midline, 1st degree Medications given after delivery: IV Pitocin Complications: None
--- NOTE | 2020-05-25 22:58 | DCINST_ITS ---
Discharge Diet: No Restrictions Discharge Activity: May Shower, May Take a Tub Bath May resume sexual activity in: 4-6 weeks Additional Activity Instructions:: Nothing in the vagina for 4-6 weeks. You may return to work/school in 6 weeks. Call your doctor if you observe: Inability to urinate, Inability to have a bowel movement, Using more than one pad per hour Additional Instructions: If you experience any of the following, contact your healthcare provider. * Bleeding that soaks a pad every hour for 2 hours * Fever 100.4 or higher * Unrelieved incision or abdominal pain * Swelling, redness, discharge or bleeding from your incision or episiotomy site * Your incision begins to separate * Problems urinating (including inability to urinate or burning while urinating). * Visual changes * Severe headache * Flu-like symptoms * Pain or redness in one of both of your breasts * Pain, warmth, tenderness or swelling in your legs, especially the calf area * Frequent nausea and vomiting * Symptoms of depression or anxiety If you experience any of the following, call 911 or go to the nearest Emergency Room. * Chest pain * Problems breathing * Seizure activity * Partial or complete paralysis of a body part, slurred speech, weakness or drooping of the face, or a sudden inability to walk or hold your balance Allergies/Adverse Reactions: Allergies amoxicillin [From Augmentin] Allergy (Verified 05/25/20 02:37) Unknown clavulanic acid [From Augmentin] Allergy (Verified 05/25/20 02:37) Unknown Pt had reaction when they were a child. Since they have taken Amoxicillin and have been fine, but have not taken Augmentin. Medications to take at Discharge Albuterol IH (ProAir) [Proair Hfa] 2 puff IH Q6H PRN PRN 02/06/18 Cetirizine HCl [Zyrtec] 10 mg PO DAILY PRN 01/03/19 L.acidoph,Paracasei, B.lactis [Probiotic] 2 ea PO DAILY 01/03/19 No122/Iron/Folic Acid [ Multi Tablet] 1 ea PO DAILY 01/03/19 Aspirin [Aspirin, Baby] 81 mg PO DAILY@0800 04/07/20 Cholecalciferol (Vitamin D3) [Vitamin D3] 5,000 unit PO DAILY 04/07/20 Please Follow Up With: Anastacio Lopez MD - [phone] When: Call to make an appointment with your doctor in 6 weeks. Primary Care Physician: Lonnie Rothman MD [Primary Care Provider] - Test Results: Test results from this visit will be discussed in further detail at your follow- up appointment, if applicable.
[2020-05-26] VITALS (10 sets, daily range): BP systolic 99–143; BP diastolic 52–81; PULSE 76–97; RESP 15–16; TEMP 36.5–37.2; O2SAT 96–100
[2020-05-26] MEDS: Methylergonovine 0.2 MG/ML Ampul IM (00:41)
[2020-05-26] MEDS: Acetaminophen 500 MG Tablet 1000 MG PO ×3 (00:44→18:54)
--- NOTE | 2020-05-26 09:03 | PCM.PN.OB ---
Subjective: Patient without complaints. Breast-feeding going well. Minimal vaginal bleeding. - Physical Exam Vitals/I&O's: Vital Signs Temp Pulse Resp BP Pulse Ox 98.2 F 76 16 121/65 H 97 05/26/20 08:00 05/26/20 08:00 05/26/20 08:00 05/26/20 08:00 05/25/20 23:44 Oxygen Delivery Method Room Air Weight: 226 lb 3.108 oz Body Mass Index (BMI) 37.6 Intake and Output for Last 24 Hours 05/24/20 05/25/20 05/26/20 23:59 23:59 23:59 Intake Total 4451.25 / 4451.25 327.43 / 327.43 Output Total 1100 / 1100 Balance 3351.25 / 3351.25 327.43 / 327.43 Microbiology Past 72 Hours 05/25/20 03:45 Mucosa - Nose SARS-CoV-2 Antigen (Rapid) - Final Current Medications Acetaminophen (Acetaminophen 500 Mg Tablet) 1,000 mg PO Q8H PRN PRN PRN Reason: Pain Score 1-3 Last Admin: 05/26/20 08:54 Dose: 1,000 mg Documented by: Albuterol Sulfate (Albuterol 2.5 Mg/3 Ml Vial.Neb.) 2.5 mg INHALATION Q6H PRN PRN PRN Reason: SOB &/OR WHEEZING Bisacodyl (Bisacodyl 10 Mg Suppository) 10 mg RC UD PRN PRN Reason: If no BM Dibucaine (Dibucaine 30 Gm Tube) 1 applic TOPICAL TID PRN PRN; Protocol PRN Reason: Discomfort Hydrocortisone (Hydrocortisone 2.5% Crm) 1 applic TOPICAL TID PRN PRN; Protocol PRN Reason: Discomfort Ibuprofen (Ibuprofen 600 Mg Tablet) 600 mg PO Q6H PRN PRN PRN Reason: Pain Score 1-3 Loratadine (Loratadine 10 Mg Tablet) 10 mg PO DAILY PRN PRN PRN Reason: ALLERGIES Measles/Mumps/Rubella Vaccine Live (Measles,Mumps&Rubella Vaccine 0.5 Ml Vial) 0.5 ml SC .ONCE ONE Stop: 05/26/20 10:01 Last Admin: 05/26/20 01:51 Dose: Not Given Documented by: Methylergonovine Maleate (Methylergonovine 0.2 Mg/Ml Ampul) 0.2 mg IM X1 PRN PRN Reason: Excess bleeding/uterine atony Last Admin: 05/26/20 00:41 Dose: 0.2 mg Documented by: Ondansetron HCl (Ondansetron 4 Mg/2 Ml Vial) 4 mg IV Q4H PRN PRN PRN Reason: Nausea Oxycodone HCl (Oxycodone 5 Mg Tablet) 5 - 10 mg PO Q4H PRN PRN PRN Reason: Pain Score 4-10 Senna/Docusate Sodium (Senna/Docusate Sodium 1 Tablet) 1 - 2 tablet PO DAILY PRN PRN PRN Reason: Constipation Simethicone (Simethicone 80 Mg Tablet) 80 mg PO PCHS PRN PRN Reason: Indigestion/Stomach pain Sodium Chloride (0.9% Saline Lock 10 Ml Syringe) 5 - 15 ml IV UD PRN PRN Reason: SALINE FLUSH Zolpidem Tartrate (Zolpidem Tartrate 5 Mg Tablet) 5 mg PO QHS PRN PRN PRN Reason: Insomnia Medical Necessity - Tobacco Use Smoking Status: Never smoker Assessment/Plan Doing well day #1 status post routine spontaneous vaginal delivery. Continuing present care.
[2020-05-27 01:10] VITALS: BP 107/70; PULSE 74; RESP 16; TEMP 36.3; O2SAT 95
[2020-05-27] MEDS: Acetaminophen 500 MG Tablet 1000 MG PO (04:18)
[2020-05-27 07:59] VITALS: BP 132/76; PULSE 69; RESP 16; TEMP 36.5
--- NOTE | 2020-05-27 09:18 | PCM.PN.OB ---
Subjective: Patient without complaints. Breast-feeding going well. Minimal vaginal bleeding reported. Ready to go home. - Physical Exam Vitals/I&O's: Vital Signs Temp Pulse Resp BP Pulse Ox 97.7 F L 69 16 132/76 H 95 05/27/20 07:59 05/27/20 07:59 05/27/20 07:59 05/27/20 07:59 05/27/20 01:10 Oxygen Delivery Method Room Air Weight: 226 lb 3.108 oz Body Mass Index (BMI) 37.6 Intake and Output for Last 24 Hours 05/25/20 05/26/20 05/27/20 23:59 23:59 23:59 Intake Total 4451.25 / 4451.25 327.43 / 327.43 Output Total 1100 / 1100 Balance 3351.25 / 3351.25 327.43 / 327.43 Microbiology Past 72 Hours 05/25/20 03:45 Mucosa - Nose SARS-CoV-2 Antigen (Rapid) - Final Current Medications Acetaminophen (Acetaminophen 500 Mg Tablet) 1,000 mg PO Q8H PRN PRN PRN Reason: Pain Score 1-3 Last Admin: 05/27/20 04:18 Dose: 1,000 mg Documented by: Albuterol Sulfate (Albuterol 2.5 Mg/3 Ml Vial.Neb.) 2.5 mg INHALATION Q6H PRN PRN PRN Reason: SOB &/OR WHEEZING Bisacodyl (Bisacodyl 10 Mg Suppository) 10 mg RC UD PRN PRN Reason: If no BM Dibucaine (Dibucaine 30 Gm Tube) 1 applic TOPICAL TID PRN PRN; Protocol PRN Reason: Discomfort Hydrocortisone (Hydrocortisone 2.5% Crm) 1 applic TOPICAL TID PRN PRN; Protocol PRN Reason: Discomfort Ibuprofen (Ibuprofen 600 Mg Tablet) 600 mg PO Q6H PRN PRN PRN Reason: Pain Score 1-3 Loratadine (Loratadine 10 Mg Tablet) 10 mg PO DAILY PRN PRN PRN Reason: ALLERGIES Methylergonovine Maleate (Methylergonovine 0.2 Mg/Ml Ampul) 0.2 mg IM X1 PRN PRN Reason: Excess bleeding/uterine atony Last Admin: 05/26/20 00:41 Dose: 0.2 mg Documented by: Ondansetron HCl (Ondansetron 4 Mg/2 Ml Vial) 4 mg IV Q4H PRN PRN PRN Reason: Nausea Oxycodone HCl (Oxycodone 5 Mg Tablet) 5 - 10 mg PO Q4H PRN PRN PRN Reason: Pain Score 4-10 Senna/Docusate Sodium (Senna/Docusate Sodium 1 Tablet) 1 - 2 tablet PO DAILY PRN PRN PRN Reason: Constipation Simethicone (Simethicone 80 Mg Tablet) 80 mg PO PCHS PRN PRN Reason: Indigestion/Stomach pain Sodium Chloride (0.9% Saline Lock 10 Ml Syringe) 5 - 15 ml IV UD PRN PRN Reason: SALINE FLUSH Zolpidem Tartrate (Zolpidem Tartrate 5 Mg Tablet) 5 mg PO QHS PRN PRN PRN Reason: Insomnia Medical Necessity - Tobacco Use Smoking Status: Never smoker Assessment/Plan Doing well day #2 status post routine spontaneous vaginal delivery. Will discharge to home with routine instructions.
== END 2020-05-27 10:50 | disposition home or self-care (01) | DRG 807 ==
LOC: WPOUT 02:58 → WP 02:58
PROVIDERS: Admitting Provider Obstetrics & Gynecology; PCP Family Medicine; Referring Provider Obstetrics & Gynecology; Visit Provider Obstetrics & Gynecology
DX: O42.92 Full-term premature rupture of membranes, unspecified as to length of time between rupture and onset of labor (principal); Z37.0 Single live birth; O70.0 First degree perineal laceration during delivery; O99.52 Diseases of the respiratory system complicating childbirth; J45.909 Unspecified asthma, uncomplicated; O99.214 Obesity complicating childbirth; E66.9 Obesity, unspecified; Z3A.40 40 weeks gestation of pregnancy; Z79.82 Long term (current) use of aspirin
CPT/HCPCS: 59025; 59050; 84112; 85025; 86850; 86900; 86901; 87426; 87491; 87591; 99218; J7120; A4216; G0378; J2405; J3490

== ENCOUNTER → 2020-07-02 | Outpatient (CLI) | payer BC, SELFPAY ==
[2020-05-25 02:30] VITALS: BMI 37.6
[2020-07-05 16:56] LABS: HPV Reflexed? NOT INDICATED
== END | disposition home or self-care (01) ==
LOC: LABSPEC 16:09
PROVIDERS: PCP Family Medicine; Visit Provider Obstetrics & Gynecology
DX: Z12.4 Encounter for screening for malignant neoplasm of cervix (principal)
CPT/HCPCS: 88175; G0145

== ENCOUNTER 2021-04-10 16:58 | Outpatient (CLI) | payer BC, SELFPAY ==
[2021-04-10 17:22] LABS: Absolute Lymphocyte Count 1.42 X10^3/uL (0.83-4.51); Absolute Neutrophil Count 6.6 X10^3/uL (2.0-7.7); Basophil# 0.02 X10^3/uL; Basophil% 0.2 % (0-1); Eosinophils% 1.2 % (0-5); Hematocrit 40.1 % (37-47); Lymphocyte # 1.42 X10^3/ul (0.83-4.51); Lymphocyte % 16.4 % (19-41); Mean Corp Hgb Conc 34.9 g/dL (32-36); Mean Corpuscular Hgb 30.7 pg (27.0-32.0); Mean Corpuscular Volume 87.9 fL (81-99); Mean Platelet Vol. 9.2 fl (6.2-12.0); Monocyte# 0.52 X10^3/uL; NRBC Flagged by Analyzer 0 % (0-5); Neutrophil # 6.59 X10^3/uL (2.7-7.7); Neutrophil % 75.9 % (47-70); Platelet Count 209 K/mm3 (150-450); RBC Distribution Width CV 13.2 % (11.6-14.6); RBC Distribution Width SD 42.6 fl (35.1-43.9); Red Blood Count 4.56 M/mm3 (4.2-5.4); White Blood Count 8.7 K/mm3 (4.4-11.0)
[2021-04-10 17:27] LABS: Color, Urine Yellow (Yellow); Glucose, Dipstick Normal (Normal); Ketone-Dipstick 50 mg/dl (Negative); Leukocyte Esterase-Dipstick Negative /ul (Negative); Nitrite-Dipstick Negative (Negative); Occult Blood-Urine Negative /ul (Negative); Protein-Dipstick Negative (Negative); Urine Bilirubin Dipstick Negative (Negative); Urine Clarity Clear (Clear); Urine Urobilinogen Normal (Normal)
[2021-04-10 17:50] LABS: Amphetamine Urine VISTA NEGATIVE (<1000 ng/mL); Barbiturate Urine VISTA NEGATIVE (< 200 ng/mL); Benzodiazepine Urine VISTA NEGATIVE (< 200 ng/mL); Cocaine Urine VISTA NEGATIVE (< 300 ng/mL); Ecstacy Urine VISTA NEGATIVE (< 500 ng/mL); Methadone Urine VISTA NEGATIVE (< 300 ng/mL); PCP Urine VISTA NEGATIVE (< 25 ng/mL); THC Urine VISTA NEGATIVE (< 50 ng/mL); Vista UDS pH Range 5
[2021-04-10 18:32] LABS: Thyroid Stim Hormone (TSH) 0.89 uIU/mL (0.358-3.74)
[2021-04-11 11:54] LABS: HIV - WCH Non-Reactive (Nonreactive); Hepatitis B Surface Antigen Non-Reactive (Nonreactive); Hepatitis C Antibody Non-Reactive (Nonreactive); Rubella IgG Reactive (Nonreactive); Syphilis Antibodies Non-reactive
[2021-04-14 07:07] LABS: Chlamydia By Nucleic Acid AMP Negative (Negative)
[2021-04-14 13:35] LABS: Gonococcus By Nucleic Acid AMP Negative (Negative)
== END 2021-04-10 23:59 | disposition home or self-care (01) ==
LOC: WOBLAB 16:59
PROVIDERS: PCP Family Medicine; Visit Provider Obstetrics & Gynecology
DX: Z34.81 Encounter for supervision of other normal pregnancy, first trimester (principal); Z11.3 Encounter for screening for infections with a predominantly sexual mode of transmission
CPT/HCPCS: 36415; 80307; 81002; 84443; 85025; 86703; 86762; 86780; 86803; 87086; 87088; 87340; 87491; 87591

== ENCOUNTER → 2021-06-28 | Outpatient (CLI) | payer BC, SELFPAY | END | disposition home or self-care (01) | LOC: LABSPEC 15:42 | PROVIDERS: PCP Family Medicine; Visit Provider Obstetrics & Gynecology | DX: R31.9 Hematuria, unspecified (principal) | CPT/HCPCS: 87086; 87088; 87186 ==

== ENCOUNTER → 2021-08-14 | Outpatient (CLI) | payer BC, SELFPAY ==
[2021-08-14 11:16] LABS: Hematocrit 37.9 % (37-47); Hemoglobin 12.6 g/dL (12.0-15.0); Mean Corp Hgb Conc 33.2 g/dL (32-36); Mean Corpuscular Hgb 29.6 pg (27.0-32.0); Mean Platelet Vol. 9.3 fl (6.2-12.0); Platelet Count 197 K/mm3 (150-450); RBC Distribution Width CV 13.4 % (11.6-14.6); Red Blood Count 4.26 M/mm3 (4.2-5.4); White Blood Count 8.9 K/mm3 (4.4-11.0)
[2021-08-14 11:22] LABS: Glucose Challenge Gest 1H 50g 127 mg/dL (70-140)
== END | disposition home or self-care (01) ==
LOC: WOBLAB 08:40
PROVIDERS: PCP Family Medicine; Visit Provider Obstetrics & Gynecology
DX: Z34.82 Encounter for supervision of other normal pregnancy, second trimester (principal)
CPT/HCPCS: 36415; 82950; 85027; 87086; 87088

== ENCOUNTER 2021-10-15 11:32 | Outpatient (CLI) | payer BC, SELFPAY | END 2021-10-15 23:59 | disposition home or self-care (01) | LOC: LABSPEC 11:33 | PROVIDERS: PCP Family Medicine; Visit Provider Obstetrics & Gynecology | DX: Z36.85 Encounter for antenatal screening for Streptococcus B (principal) | CPT/HCPCS: 87081 ==

== ENCOUNTER 2021-10-31 05:00 | Inpatient (IN) | payer BC, SELFPAY ==
[2021-10-31] VITALS (36 sets, daily range): BP systolic 102–159; BP diastolic 63–78; PULSE 73–97; RESP 16–18; TEMP 35.9–37.1; O2SAT 94–100; BMI 41.0
[2021-10-31 04:58] LABS: ROM Internal Control Test YES-OK TO RESULT pt. (Internal QC)
[2021-10-31 04:59] LABS: ROM Patient Test POSITIVE (Negative)
--- NOTE | 2021-10-31 05:19 | HP.PCM.OB_ITS ---
History and Physical Date of Admission: 10/31/21 Chief complaint: Leakage of fluid History present illness: 31-year-old G5, P1 at 39 weeks and 1 day with CRYSTAL 11/06/2021 arrives with leakage of fluid. Denies headache, visual changes, chest pain, shortness of breath, nausea vomit, right upper quadrant pain. Patient states good movement. Obstetric history: G1: SAB G2: SAB G3: SAB G4: male 7 pounds 4 ounces G5: Current Past medical history: None Medications: vitamins Past surgical history: [place] teeth extraction Family history: Denies history DVT or PE Social history: Denies smoking, alcohol use, drug use Allergies: Augmentin Review of systems: Besides above pertinent positives a full review of systems was performed and found to be negative Physical exam: Vitals: Blood pressure 102/67 pulse 93 temp 96.6 Fahrenheit General: Normal-appearing no acute distress none HEENT: Normocephalic atraumatic no cervical of adenopathy Cardiac/respiratory: No successor muscles, nonlabored breathing Abdomen: Soft, nontender, gravid Extremities: No peripheral edema normal peripheral pulses Psych: Normal affect normal demeanor nonpressured speech Labs: ROM positive Assessment plan: 31-year-old G5, P1 at 39 weeks and 1 day with spontaneous rupture membranes Admit labor and delivery CEFM GBS negative Routine orders
[2021-10-31] MEDS: Lactated Ringers 1,000 ML 50 ML IV (05:20)
[2021-10-31] MEDS: LACTATED RINGERS 500 ML 999 ML IV (05:21)
[2021-10-31 05:32] LABS: Absolute Neutrophil Count 6.5 X10^3/uL (2.0-7.7); Basophil# 0.03 X10^3/uL; Basophil% 0.3 % (0-1); Eosinophil# 0.08 X10^3/uL; Eosinophils% 0.9 % (0-5); Lymphocyte % 19.6 % (19-41); Mean Corp Hgb Conc 33.3 g/dL (32-36); Mean Corpuscular Hgb 27.5 pg (27.0-32.0); Mean Corpuscular Volume 82.6 fL (81-99); Mean Platelet Vol. 9.3 fl (6.2-12.0); Monocyte# 0.66 X10^3/uL; Monocyte% 7.2 % (0-10); NRBC Flagged by Analyzer 0 % (0-5); Neutrophil # 6.51 X10^3/uL (2.7-7.7); Platelet Count 175 K/mm3 (150-450); RBC Distribution Width CV 14.6 % (11.6-14.6); RBC Distribution Width SD 43.8 fl (35.1-43.9); Red Blood Count 4.72 M/mm3 (4.2-5.4); White Blood Count 9.2 K/mm3 (4.4-11.0)
[2021-10-31] MEDS: Oxytocin 30 units/NS 500 ml 30 UNITS/500 ML IV.SOLN 334 UNITS IV (06:04)
[2021-10-31] MEDS: Methylergonovine 0.2 MG/ML Ampul IM (06:08)
--- NOTE | 2021-10-31 06:18 | EX.PCM.OBRPT ---
Vaginal Delivery Findings Description of Procedure: Normal spontaneous vaginal delivery of a viable male , vertex CAM. Head and shoulders delivered with ease. Cord cut and clamped. Baby handed off to patient. Placenta delivered via cord traction and fundal massage. Prophylactic Methergine with a short second stage given IM. First-degree midline perineal laceration noted, hemostatic without repair. EBL 300 cc Apgars 8/9
[2021-10-31] MEDS: 0.9% Saline Lock 10 ML Syringe IV (08:23)
[2021-10-31] MEDS: Ibuprofen 600 MG Tablet PO (13:02)
--- NOTE | 2021-10-31 14:01 | NURSING ---
This geriatric nursing assistant reviewed the documentation completed by Nabil Aragon, student nurse. The assessment was directly observed.
[2021-11-01 04:24] VITALS: BP 126/61; PULSE 66; PULSE 78; RESP 16; TEMP 36.5; O2SAT 98
--- NOTE | 2021-11-01 08:22 | DCINST_ITS ---
Discharge Instructions Diet Discharge Diet: No restrictions Activity Discharge Activity: Return to Normal Activity, May Drive and May Shower May resume sexual activity in: 4-6 weeks Weight Bearing Status: Weight bearing as tolerated Dressing / Incision Call your doctor if your incision/area has: Continuous Slow Oozing and Foul Smelling Discharge Call your doctor if you observe: Fever of 101 or Higher, Shortness of breath and Chest pain Follow Up Care Please Follow Up With: Praveen Aragon MD When: 4 to 6 weeks Test Results: Test results from this visit will be discussed in further detail at your follow- up appointment, if applicable. Discharge Plan Admission Admit Date/Time: 10/31/21 05:00 Attending Provider: Praveen Aragon Primary Care Provider: Lonnie Rothman Discharge Orders/Prescriptions Prescriptions: No Action albuterol sulfate [ProAir HFA] 1 PUFF inhaler 2 puff IH Q6H PRN PRN (Reason: Sob &/Or Wheezing) Label Comments: INHALE 2 PUFFS BY MOUTH EVERY 4 HOURS NEEDED [id number] 1 EACH tablet 1 ea PO DAILY L.acidoph, paracasei,B. lactis 1 EACH capsule 2 ea PO DAILY Referrals / Follow Up: Lonnie Rothman MD [Primary Care Provider] - Disposition Discharge Orders: Discharge Patient (Routine); Ordered 11/01/21 Ordered By: Dr. Praveen Aragon
--- NOTE | 2021-11-01 08:23 | PCM.PN.OB ---
Subjective Subjective No overnight complaint Objective Data Objective Data Vital Signs: Vital Signs Temp Pulse Resp BP Pulse Ox O2 Del Method 97.7 F L 78 16 126/61 H 98 Room Air 11/01/21 04:24 11/01/21 04:24 11/01/21 04:24 11/01/21 04:24 11/01/21 04:11/01/21 04:24 Oxygen Delivery Method Room Air Weight: 246 lb 9.6 oz Body Mass Index (BMI) 41.0 Intake & Output: Intake and Output for Last 24 Hours 10/30/21 10/31/21 11/01/21 23:59 23:59 23:59 Intake Total 1031.67 / 1031.67 Output Total 800 / 800 Balance 231.67 / 231.67 Lab / Micro Data Result Diagrams: 10/31/21 05:20 Physical Exam Const alert, oriented x3, no apparent distress, average body habitus, healthy appearing and well nourished HEENT normocephalic Eyes PERRL Resp normal respiratory effort, no retractions and no use of accessory muscles GI GI Narrative: Soft, nontender, uterus firm below umbilicus Extremity normal to inspection, full ROM and no clubbing, cyanosis or edema Neuro moves all extremities, no focal motor deficits and no sensory deficits noted Psych mental status grossly normal, affect normal, speech normal and activity/motor behavior normal Assessment & Plan (1) : PLAN: day 1. Breast-feeding. Pain well controlled. Okay to discharge home if okay with instructional interventionist
[2021-11-01 08:55] VITALS: BP 116/70; PULSE 58
[2021-11-01 08:56] VITALS: BP 116/70; PULSE 58; RESP 16; TEMP 36.1
[2021-11-01 08:58] VITALS: PULSE 58; RESP 16
== END 2021-11-01 10:20 | disposition home or self-care (01) | DRG 807 ==
LOC: WPOUT 05:01 → WP 05:01
PROVIDERS: Admitting Provider Obstetrics & Gynecology; PCP Family Medicine; Referring Provider Obstetrics & Gynecology; Visit Provider Obstetrics & Gynecology
DX: O42.92 Full-term premature rupture of membranes, unspecified as to length of time between rupture and onset of labor (principal); Z37.0 Single live birth; O26.23 Pregnancy care for patient with recurrent pregnancy loss, third trimester; O70.0 First degree perineal laceration during delivery; Z3A.39 39 weeks gestation of pregnancy
CPT/HCPCS: 59025; 59050; 84112; 85025; 86850; 86900; 86901; 99218; J7120; A4216; G0378